=== PATIENT | male | born 1990 ===

== ENCOUNTER → 2020-05-02 | Outpatient (CLI) | payer SELFPAY | END | disposition home or self-care (01) | LOC: LAB SHORT 12:31 | DX: L72.3 Sebaceous cyst (principal) | CPT/HCPCS: 87070; 87075; 87077; 87147; 87186; 87205 ==

== ENCOUNTER 2021-04-17 22:54 | Emergency (ER) | payer OTHER ==
[~2021-04-17] VITALS: Ht 188 cm; Wt 88.5 kg
== END 2021-04-18 | disposition home or self-care (01) ==
LOC: ER 22:54
DX: H60.92 Unspecified otitis externa, left ear (principal)
CPT/HCPCS: 99282; A9270

== ENCOUNTER → 2021-04-29 | Outpatient (CLI) | payer OTHER ==
[~2021-04-29] MED LIST: CEPH500 PO
== END | disposition home or self-care (01) ==
LOC: LAB SHORT 14:48
DX: L03.012 Cellulitis of left finger (principal)
CPT/HCPCS: 87070; 87075; 87077; 87147; 87186; 87205

== ENCOUNTER 2024-03-16 23:05 | Emergency (ER) | payer OTHER ==
[~2024-03-16] VITALS: Ht 188 cm; Wt 68.0 kg
[2024-03-17 00:38] LABS: BASOPHILS ABSOLUTE AUTO 0.09 K/mm3 (0.00-0.23); BASOPHILS PERCENT AUTO 1 % (0-2); EOSINOPHILS ABSOLUTE AUTO 0.17 K/mm3 (0.00-0.68); EOSINOPHILS PERCENT AUTO 1 % (0-6); Hematocrit 40.5 % (37.0-53.0); Hemoglobin 13.5 g/dL (13.5-17.5); IMMATURE GRAN ABSOLUTE AUTO 0.16 K/mm3 (0.00-0.10); IMMATURE GRAN PERCENT AUTO 1 % (0-1); LYMPHOCYTES ABSOLUTE AUTO 2.41 K/mm3 (0.84-5.20); LYMPHOCYTES PERCENT AUTO 13 % (21-46); MONOCYTES ABSOLUTE AUTO 1.52 K/mm3 (0.16-1.47); MONOCYTES PERCENT AUTO 8 % (4-13); Mean Corpuscular HGB 30.5 pg (26.0-34.0); Mean Corpuscular HGB Conc 33.3 g/dL (31.5-36.5); Mean Corpuscular Volume 91 fL (80-100); Mean Platelet Volume 9.9 fL (9.1-12.4); NEUTROPHILS ABSOLUTE AUTO 14.09 K/mm3 (1.96-9.15); NEUTROPHILS PERCENT AUTO 76 % (41-73); Platelet Count 338 K/mm3 (150-400); RDW Coefficient Variation 13.5 % (11.7-14.2); RDW Standard Deviation 45.9 fL (35.1-46.3); Red Blood Cell Count 4.43 M/mm3 (4.30-5.90); White Blood Cell Count 18.44 K/mm3 (4.00-11.30)
[2024-03-17 00:54] LABS: Albumin, Blood 3.1 g/dL (3.4-5.0); Albumin/Globulin Ratio 0.7 (0.8-1.8); Bilirubin, Total 0.4 mg/dL (0.1-1.0); Bun/Creatinine Ratio 26.8 (12.0-20.0); Calcium, Blood 8.8 mg/dL (8.5-10.1); Creatinine, Blood 0.41 mg/dL (0.60-1.20); Globulin, Blood 4.7 g/dL (2.2-4.0); Potassium, Blood 3.8 mmol/L (3.5-5.5); Total Protein, Blood 7.8 g/dL (6.4-8.2)
[2024-03-17] MEDS ORDERED: RX Prepack Albuterol 1 PREPACK/6.7 GM INH UD ONE (03:25)
[2024-03-17] MEDS ORDERED: Azithromycin 250 MG Tab PO ONE (03:25)
[2024-03-17] MEDS ORDERED: Ipratropium/Albuterol SulF 2.5-0.5MG/3 ML Amp INH ONE (03:25)
[2024-03-17] MEDS ORDERED: AZIT250 PO (03:27)
[2024-03-17] MEDS ORDERED: NICODERM CQ1 EA11 TOP (03:27)
[2024-03-17 04:00] VITALS: BP 119/78
== END 2024-03-17 04:10 | disposition home or self-care (01) ==
LOC: ER 23:05
PROVIDERS: Emergency Medicine
DX: J18.9 Pneumonia, unspecified organism (principal); F17.200 Nicotine dependence, unspecified, uncomplicated
CPT/HCPCS: 71046; 80053; 84484; 85025; 93005; 93010; 94640; 94664; 99285-25; A9270

== ENCOUNTER 2024-11-25 17:16 | Emergency (ER) | payer OTHER ==
[~2024-11-25] VITALS: Ht 188 cm; Wt 77.1 kg
[~2024-11-25 17:16] MED LIST changes: +AMOCLA875 PO; +AZIT250 PO; +Ibuprofen600 MG PO; +NICODERM CQ1 EA11 TOP
[2024-11-25 17:23] VITALS: BP 138/81
[2024-11-25] MEDS ORDERED: Amoxicillin500 MG PO (17:24)
== END 2024-11-25 17:34 | disposition home or self-care (01) ==
LOC: ER 17:16
DX: K02.9 Dental caries, unspecified (principal); K04.7 Periapical abscess without sinus; F17.200 Nicotine dependence, unspecified, uncomplicated
CPT/HCPCS: 99283; A9270

== ENCOUNTER 2025-04-26 02:28 | Emergency (ER) | payer OTHER ==
[~2025-04-26] VITALS: Ht 188 cm; Wt 81.7 kg
[~2025-04-26 02:28] MED LIST changes: +Amoxicillin500 MG PO
[2025-04-26 08:25] VITALS: BP 123/72
== END 2025-04-26 08:45 | disposition home or self-care (01) ==
LOC: ER 02:28
DX: S81.812A Laceration without foreign body, left lower leg, initial encounter (principal); V18.2XXA Unspecified pedal cyclist injured in noncollision transport accident in nontraffic accident, initial encounter
CPT/HCPCS: 12001; 99283-25